=== PATIENT | male | born 1995 | race Caucasian/White ===

== ENCOUNTER 2016-06-18 19:52 | Emergency (ER) | payer MEDICAID, OTHER ==
[2016-06-18 20:03] VITALS: RESP 16; BMI 22.8
[2016-06-18 20:44] LABS: URINE BILIRUBIN NEGATIVE (NEGATIVE); URINE BLOOD NEGATIVE (NEGATIVE); URINE GLUCOSE (UA) NEGATIVE (NEGATIVE); URINE KETONE 15 mg/dL (NEGATIVE); URINE LEUKOCYTE ESTERASE NEGATIVE Leu/uL (NEGATIVE); URINE PROTEIN TRACE mg/dL (<30 mg/dL)
[2016-06-18 20:47] LABS: URINE APPEARANCE CLEAR (CLEAR); URINE COLOR YELLOW (YELLOW)
[2016-06-18 20:49] LABS: URINE EPITHELIAL CELLS 0 - 2 /hpf (0-5); URINE RBC NEGATIVE /hpf (0-2); URINE WBC 0 - 2 /hpf (0-6)
--- NOTE | 2016-06-18 21:15 | ED PDOC ---
Arrival/HPI - General Chief Complaint: Headache Time Seen by Provider: 06/18/16 20:01 Historian: Patient - History of Present Illness Narrative History of Present Illness (Text): 06/18/16 21:12 20yo male BIBA for complaint of generalized back pain and headache since this morning. states he took unknown analgesic [employer]. He denies fever, but was febrile in triage. He denies neck pain, nuchal ridgity, nausea, vomiting, chills, rash, trauma, cough, sick contact, any other complaint. Past Medical History - Provider Review Nursing Documentation Reviewed: Yes - Cardiac Hx Cardiac Disorders: No - Pulmonary Hx Respiratory Disorders: No - Neurological Hx Neurological Disorder: No - HEENT Hx HEENT Disorder: No - Renal Hx Renal Disorder: No - Endocrine/Metabolic Hx Endocrine Disorders: No - Hematological/Oncological Hx Blood Disorders: No - Integumentary Hx Dermatological Disorder: No - Musculoskeletal/Rheumatological Hx Musculoskeletal Disorders: No - Gastrointestinal Hx Gastrointestinal Disorders: No - Genitourinary/Gynecological Hx Genitourinary Disorders: No - Psychiatric Hx Psychophysiologic Disorder: No Hx Substance Use: No - Anesthesia Hx Anesthesia: No Family/Social History - Physician Review Nursing Documentation Reviewed: Yes Family/Social History: Unknown Family HX Smoking Status: Never Smoked Hx Alcohol Use: No Hx Substance Use: No Allergies/Home Meds Allergies/Adverse Reactions: Allergies No Known Allergies Allergy (Verified 06/18/16 20:08) Review of Systems - Physician Review All systems were reviewed & negative as marked: Yes - Review of Systems Constitutional: Normal Eyes: Normal ENT: Normal Respiratory: Normal Cardiovascular: Normal Gastrointestinal: Normal Genitourinary Male: Normal Musculoskeletal: Back Pain Skin: Normal Neurological: Headache. absent: Dizziness, Focal Weakness, Gait Changes, Speech Changes, Facial Droop Endocrine: Normal Hemo/Lymphatic: Normal Psychiatric: Normal Physical Exam Vital Signs Reviewed: Yes Vital Signs Temp Pulse Resp BP Pulse Ox 06/18/16 22:13 16 98 06/18/16 21:26 100.6 F H 83 16 109/68 98 06/18/16 20:03 101.3 F H 103 H 16 96 06/18/16 20:02 101.3 F H 103 H 16 122/70 96 Temperature: Febrile Blood Pressure: Normal Pulse: Tachycardic Respiratory Rate: Normal Appearance: Positive for: Well-Appearing, Non-Toxic, Comfortable Pain Distress: None Mental Status: Positive for: Alert and Oriented X 3 - Systems Exam Head: Present: Atraumatic, Normocephalic Pupils: Present: PERRL Extroacular Muscles: Present: EOMI Conjunctiva: Present: Normal Mouth: Present: Moist Mucous Membranes Neck: Present: Normal Range of Motion. No: Meningeal Signs Respiratory/Chest: Present: Clear to Auscultation, Good Air Exchange. No: Respiratory Distress, Accessory Muscle Use Cardiovascular: Present: Regular Rate and Rhythm, Normal S1, S2. No: Murmurs Abdomen: Present: Normal Bowel Sounds. No: Tenderness, Distention, Peritoneal Signs Back: Present: Paraspinal Tenderness (B/L) Upper Extremity: Present: Normal Inspection. No: Cyanosis, Edema Lower Extremity: Present: Normal Inspection. No: Edema Neurological: Present: GCS=15, CN II-XII Intact, Speech Normal, Motor Func Grossly Intact, Normal Sensory Function, Normal Cerebellar Funct, Norm Deep Tendon Reflexes, Gait Normal, Memory Normal, Other (No focal neurological deficit) Skin: Present: Warm, Dry, Normal Color. No: Rashes Psychiatric: Present: Alert, Oriented x 3, Normal Insight, Normal Concentration Medical Decision Making ED Course and Treatment: 06/19/16 01:19 Pt in ED for stated history. On re evaluation he states his headache resolved and he still have some stiffness on his back. He remain neurological intact. His VS improved. LS xray - No acute finding Result was DW the pt. He reported lifting at work. his symptoms are likely secondary to MS pain and viral syndrome. Rapid flu was negative. He was DC home with a NSAID and muscle relaxer. Referred to her PMD. TRT ED for any new or worsening symptoms. - Lab Interpretations Lab Results: Lab Results 06/18/16 20:28: Urine Color Yellow, Urine Appearance Clear, Urine pH 7.0, Ur Specific [place] 1.015, Urine Protein Trace H, Urine Glucose (UA) Negative, Urine Ketones 15 H, Urine Blood Negative, Urine Nitrate Negative, Urine Bilirubin Negative, Urine Urobilinogen 1.0 H, Ur Leukocyte Esterase Negative, Urine RBC Negative, Urine WBC 0 - 2, Ur Epithelial Cells 0 - 2, Influenza Typ A, B (EIA) Negative for flu a/b - RAD Interpretation Radiology Orders: 06/18/16 20:08 LS SPINE WITH OBL > 18 YRS OLD [RAD] Stat - Medication Orders Current Medication Orders: Discontinued Medications Acetaminophen (Tylenol 325mg Tab) 650 mg PO STAT STA Stop: 06/18/16 20:09 Last Admin: 06/18/16 20:55 Dose: 650 MG MAR Pain/Vitals Document 06/18/16 20:55 [email or web address] (Rec: 06/18/16 20:55 [email or web address] [id number]) Pain Reassessment Is This A Pain ReAssessment? No Sleep Is patient sleeping during reassessment? No Presence of Pain Presence of Pain Yes Pain Scale Used Pain Scale Used Numeric Location Pain Location Body Audit Clerk Description Constant Intensity 7 Scale Used Numeric Pain Behavior Facial Grimacing Ketorolac Tromethamine (Toradol) 60 mg IM STAT STA Stop: 06/18/16 21:37 Last Admin: 06/18/16 22:12 Dose: 60 MG IM Administration Charges Document 06/18/16 22:12 [email or web address] (Rec: 06/18/16 22:12 [email or web address] [id number]) Injection Site MAR Injection Site Right Gluteus Marc Charges for Administration # of IM Administrations 1 Disposition/Present on Arrival - Present on Arrival Any Indicators Present on Arrival: No History of DVT/PE: No History of Uncontrolled Diabetes: No Urinary Catheter: No History of Decub. Ulcer: No History Surgical Site Infection Following: None - Disposition Have Diagnosis and Disposition been Completed?: Yes Diagnosis: Viral syndrome, Back pain, Headache Disposition: HOME/ ROUTINE Disposition Time: 21:45 Patient Plan: Discharge Condition: STABLE Discharge Instructions (ExitCare): Back Pain (ED), Viral Syndrome (ED) Additional Instructions: Rest and take medication as directed follow up with your doctor Return to ED for any new or worsening symptoms Prescriptions: Cyclobenzaprine [Cyclobenzaprine HCl] 10 mg PO TID #10 tab Ibuprofen [Motrin Tab] 600 mg PO Q6 #20 tab Referrals: Janae Duenas MD [Primary Care Provider] - Follow up with primary
[2016-06-18 21:26] VITALS: BP 109/68; PULSE 83; TEMP 100.6; O2SAT 98
--- NOTE | 2016-06-19 10:33 | RAD ---
PROCEDURE: Radiographs of the Lumbar Spine. HISTORY: back pain COMPARISON: No prior. FINDINGS: BONES: Normal alignment. No listhesis. No fracture. DISC SPACES: Unremarkable. OTHER FINDINGS: None. IMPRESSION: Unremarkable radiographs of the lumbar spine.
== END 2016-06-18 22:19 | disposition home or self-care (01) ==
LOC: ED 19:52
DX: B34.9 Viral infection, unspecified (principal); M54.9 Dorsalgia, unspecified; R51 Headache
CPT/HCPCS: 72110; 81001; 87804; 96372; 99285; J1885